=== PATIENT | female | born 1980 | race Caucasian/White ===

== ENCOUNTER → 2022-10-26 | Outpatient (REF) ==
[2022-10-26 14:10] LABS: RSV AMPLIFICATION NEGATIVE (NEGATIVE)
== END ==
LOC: M LABSMTC 10:51
PROVIDERS: ATTEND Family Medicine
DX: Z00.00 Encounter for general adult medical examination without abnormal findings (principal)

== ENCOUNTER → 2022-12-03 | Outpatient (CLI) | payer BC | LOC: M WUC 14:25 | PROVIDERS: ATTEND Physician Assistant | DX: S90.31XA Contusion of right foot, initial encounter (principal); W18.30XA Fall on same level, unspecified, initial encounter; Y92.009 Unspecified place in unspecified non-institutional (private) residence as the place of occurrence of the external cause ==

== ENCOUNTER → 2022-12-11 | Outpatient (CLI) | payer BC ==
[2022-12-11 09:10] LABS: APPEARANCE, URINE MANUAL CLEAR (CLEAR); COLOR, URINE MANUAL YELLOW (YELLOW)
[2022-12-11 09:11] LABS: PH,URINE MAN 7.5 UNITS (5.0 - 7.0)
[2022-12-11 09:12] LABS: BILIRUBIN, URINE MANUAL 3+ (NEGATIVE); BLOOD URINE MANUAL NEGATIVE (NEGATIVE); GLUCOSE, URINE (UA) MANUAL NEGATIVE (NEGATIVE); KETONE, URINE MANUAL NEGATIVE (NEGATIVE); LEUKOCYTE ESTERASE, URINE MAN NEGATIVE (NEGATIVE); NITRITE, URINE MANUAL NEGATIVE (NEGATIVE); PROTEIN, URINE MANUAL NEGATIVE (NEGATIVE); UROBILINOGEN, URINE MANUAL NORMAL (NORMAL)
[2022-12-11 09:18] LABS: BASO # 0.1 10^3/uL (0.0-0.2); BASO % 1.1 % (0.0-1.0); EOS # 0.1 10^3/uL (0.0-0.5); EOS % 1.1 % (0.0-3.0); HEMATOCRIT 42.6 % (36.0-47.0); HEMOGLOBIN 14.1 g/dl (12.0-15.5); LYMPH # 2.3 10^3/uL (1.5-5.0); LYMPH % 35.1 % (24.0-44.0); MEAN CORPUSCULAR HEMOGLOBIN 30.4 pg (27.0-33.0); MEAN CORPUSCULAR HGB CONC 33.1 g/dl (32.0-36.5); MEAN CORPUSCULAR VOLUME 91.8 fl (80.0-96.0); MONO # 0.6 10^3/uL (0.0-0.8); MONO % 8.4 % (2.0-8.0); NEUTROPHILS # 3.6 10^3/uL (1.5-8.5); PLATELET COUNT, AUTOMATED 254 10^3/uL (150-450); RED BLOOD COUNT 4.64 10^6/uL (4.00-5.40); WHITE BLOOD COUNT 6.6 10^3/uL (4.0-10.0)
[2022-12-11 09:31] LABS: ERYTHROCYTE SEDIMENTATION RATE 6 mm/hr (0-20)
[2022-12-11 09:47] LABS: URIC ACID 4.2 MG/DL (3.1-7.8)
[2022-12-11 09:48] LABS: C REACTIVE PROTEIN QUANTITATIV < 0.40 MG/DL (<1.0)
[2022-12-11 09:50] LABS: ALBUMIN 4.1 G/DL (3.2-5.2); ALKALINE PHOSPHATASE 80 U/L (46-116); ALT/SGPT 15 U/L (7.0-40); AST/SGOT 15 U/L (<34); BILIRUBIN,TOTAL 0.5 MG/DL (0.3-1.2); BLOOD UREA NITROGEN 14 MG/DL (9-23); CALCIUM LEVEL 8.6 MG/DL (8.5-10.1); CARBON DIOXIDE LEVEL 24 MMOL/L (20-31); CHLORIDE LEVEL 109 MMOL/L (98-107); CHOLESTEROL LEVEL 189 MG/DL (<200); CHOLESTEROL RISK RATIO 4.16 (<5); CREATININE FOR GFR 0.87 MG/DL (0.55-1.30); GLOMERULAR FILTRATION RATE > 60.0 (>58); GLUCOSE, FASTING 92 MG/DL (60-100); HDL CHOLESTEROL 45.4 MG/DL (>40); IRON (FE) 66 UG/DL (50-170); LDL CHOLESTEROL 114.4 MG/DL (<100); NON-HDL-C 144 MG/DL; POTASSIUM SERUM 3.9 MMOL/L (3.5-5.1); RHEUMATOID FACTOR QUANT < 3.5 IU/ML (<14); SODIUM LEVEL 140 MMOL/L (136-145); TOTAL IRON BINDING CAPACITY 348 UG/DL (250-425); TOTAL PROTEIN 7.2 G/DL (5.7-8.2); TRIGLYCERIDES LEVEL 146 MG/DL (<150)
[2022-12-11 09:51] LABS: FOLATE 11.5 NG/ML (>5.4); TOTAL 25(OH) VITAMIN D 13.1 NG/ML (20.0-100.0); VITAMIN B12 LEVEL 329 PG/ML (211-911)
[2022-12-11 09:52] LABS: FERRITIN 37.2 NG/ML (7.3-270.7); FREE T4 1.02 NG/DL (0.89-1.76); THYROID STIMULATING HORMONE 0.645 uIU/ML (0.55-4.78)
== END ==
LOC: M LAB 08:27
PROVIDERS: ATTEND Physician Assistant
DX: M25.50 Pain in unspecified joint (principal)

== ENCOUNTER → 2023-01-18 | Outpatient (CLI) | payer BC | LOC: M WHC 08:31 | PROVIDERS: ATTEND Physician Assistant | DX: Z12.31 Encounter for screening mammogram for malignant neoplasm of breast (principal); N64.52 Nipple discharge ==

== ENCOUNTER → 2023-03-23 | Outpatient (CLI) | payer BC ==
[~2023-03-23] MED LIST: BUSP7.5T7 PO; DULO1CAP6 PO; ERGO500029 PO; MONT10TA97 PO; QVAR80AE8 INH; TOPI100T9 PO; VENTAER
[2023-03-23 08:04] LABS: BASO # 0.1 10^3/uL (0.0-0.2); EOS # 0.1 10^3/uL (0.0-0.5); EOS % 1.1 % (0.0-3.0); HEMATOCRIT 41.7 % (36.0-47.0); HEMOGLOBIN 13.7 g/dl (12.0-15.5); LYMPH % 27.3 % (24.0-44.0); MEAN CORPUSCULAR HEMOGLOBIN 30.5 pg (27.0-33.0); MEAN CORPUSCULAR HGB CONC 32.9 g/dl (32.0-36.5); MEAN CORPUSCULAR VOLUME 92.9 fl (80.0-96.0); MONO # 0.5 10^3/uL (0.0-0.8); MONO % 7.1 % (2.0-8.0); NEUTROPHILS # 4.7 10^3/uL (1.5-8.5); NEUTROPHILS % 63.1 % (36.0-66.0); PLATELET COUNT, AUTOMATED 231 10^3/uL (150-450); RED BLOOD COUNT 4.49 10^6/uL (4.00-5.40); WHITE BLOOD COUNT 7.4 10^3/uL (4.0-10.0)
[2023-03-23 08:20] LABS: BLOOD UREA NITROGEN 12 MG/DL (9-23); CALCIUM LEVEL 8.3 MG/DL (8.5-10.1); CARBON DIOXIDE LEVEL 24 MMOL/L (20-31); CHLORIDE LEVEL 110 MMOL/L (98-107); CREATININE FOR GFR 0.79 MG/DL (0.55-1.30); GLOMERULAR FILTRATION RATE > 60.0 (>58); GLUCOSE, FASTING 86 MG/DL (60-100); POTASSIUM SERUM 3.9 MMOL/L (3.5-5.1); SODIUM LEVEL 143 MMOL/L (136-145)
== END ==
LOC: M LAB 07:28
PROVIDERS: ATTEND Student in an Organized Health Care Education/Training Program
DX: Z01.818 Encounter for other preprocedural examination (principal)

== ENCOUNTER 2023-03-29 06:13 | Day surgery (SDC) | payer BC ==
[~2023-03-29] VITALS: Ht 175.3 cm; Wt 109.6 kg
[2023-03-29] MEDS ORDERED: ceFAZolin SOD 2 GM in IV 1 EA IV ONE (07:05)
[2023-03-29] MEDS ORDERED: LIDOCAINE 1% SDV 30ML VIAL As Ordered ONE (07:07)
[2023-03-29] MEDS ORDERED: BUPIVACAINE HCL 0.25% 30ML VIAL As Ordered ONE (07:07)
[2023-03-29] MEDS ORDERED: LR 1,000 ML IV SCH (07:25)
[2023-03-29] MEDS ORDERED: HEPARIN SOD (PORCINE) 5000UNITS/ML 1ML VIAL/SYRINGE SQ ONE (07:25)
[2023-03-29] MEDS ORDERED: ONDANSETRON 4MG 2ML VIAL As Ordered ONE (07:56)
[2023-03-29] MEDS ORDERED: fentaNYL 250 MCG/5 ML INJECTION As Ordered ONE (07:56)
[2023-03-29] MEDS ORDERED: propofoL 200 MG/20 ML VIAL As Ordered ONE (07:56)
[2023-03-29] MEDS ORDERED: MIDAZOLAM INJ 2MG/2ML VIAL As Ordered ONE (07:56)
[2023-03-29] MEDS ORDERED: LIDOCAINE 2% 100MG/5ML SDV (FOR ANES.) As Ordered ONE (07:56)
[2023-03-29] MEDS ORDERED: ACETAMINOPHEN 1000MG 100ML IV BAG As Ordered ONE (08:04)
[2023-03-29] MEDS ORDERED: diphenhydrAMINE 50MG/ML VIAL As Ordered ONE (08:52)
[2023-03-29] MEDS ORDERED: SCOPOLAMINE 1MG TRANSDERMAL PATCH TOP ONE (09:00)
[2023-03-29] MEDS ORDERED: oxyCODONE 5MG TAB PO PRN (09:05)
[2023-03-29] MEDS ORDERED: MORPHINE 2 MG/ML 1ML VIAL IV PRN (09:05)
[2023-03-29] MEDS ORDERED: ONDANSETRON 4MG 2ML VIAL IV PRN (09:05)
[2023-03-29] MEDS ORDERED: fentaNYL 100 MCG/2 ML INJECTION IV PRN (09:05)
[2023-03-29] MEDS ORDERED: OXYC5CAP56 PO (09:19)
[2023-03-29 11:15] VITALS: BP 140/91
[2023-03-29] MEDS ORDERED: OXYC-517 PO (11:41)
== END 2023-03-29 11:15 | disposition home or self-care (01) ==
LOC: M SDC 06:13
PROVIDERS: ATTEND Surgery
DX: D24.1 Benign neoplasm of right breast (principal); N64.52 Nipple discharge; M19.90 Unspecified osteoarthritis, unspecified site; K21.9 Gastro-esophageal reflux disease without esophagitis; K59.00 Constipation, unspecified; M79.7 Fibromyalgia; G43.909 Migraine, unspecified, not intractable, without status migrainosus; Z88.8 Allergy status to other drugs, medicaments and biological substances; Z79.899 Other long term (current) drug therapy; Z79.51 Long term (current) use of inhaled steroids
CPT/HCPCS: 19120; 36415; 81025; 86850; 86900; 86901; 88305; J0131; J0690; J1100; J1200; J2250; J2405; J3010; S0020

== ENCOUNTER → 2023-07-19 | Outpatient (CLI) | payer BC ==
[~2023-07-19] MED LIST changes: +OXYC-517 PO; +OXYC5CAP56 PO
== END ==
LOC: M PLAIMG 13:34
PROVIDERS: ATTEND Physician Assistant
DX: G43.119 Migraine with aura, intractable, without status migrainosus (principal); R20.2 Paresthesia of skin

== ENCOUNTER → 2023-09-22 | Outpatient (REF) | LOC: M EMP 15:51 | PROVIDERS: ATTEND Family Medicine | DX: Z11.52 Encounter for screening for COVID-19 (principal) ==

== ENCOUNTER → 2023-10-11 | Outpatient (CLI) | payer BC ==
[2023-10-11 14:11] LABS: BASO # 0.1 10^3/uL (0.0-0.2); BASO % 0.6 % (0.0-1.0); EOS # 0.1 10^3/uL (0.0-0.5); EOS % 0.7 % (0.0-3.0); HEMATOCRIT 39.5 % (36.0-47.0); HEMOGLOBIN 13.3 g/dl (12.0-15.5); LYMPH # 2.2 10^3/uL (1.5-5.0); LYMPH % 26.2 % (24.0-44.0); MEAN CORPUSCULAR HEMOGLOBIN 30.6 pg (27.0-33.0); MEAN CORPUSCULAR HGB CONC 33.7 g/dl (32.0-36.5); MEAN CORPUSCULAR VOLUME 90.8 fl (80.0-96.0); MONO # 0.5 10^3/uL (0.0-0.8); MONO % 6.4 % (2.0-8.0); NEUTROPHILS # 5.5 10^3/uL (1.5-8.5); PLATELET COUNT, AUTOMATED 219 10^3/uL (150-450); RED BLOOD COUNT 4.35 10^6/uL (4.00-5.40); WHITE BLOOD COUNT 8.3 10^3/uL (4.0-10.0)
[2023-10-11 14:39] LABS: ALBUMIN 3.7 G/DL (3.2-5.2); ALKALINE PHOSPHATASE 81 U/L (46-116); ALT/SGPT 19 U/L (7.0-40); AST/SGOT 14 U/L (<34); BILIRUBIN,TOTAL 0.5 MG/DL (0.3-1.2); BLOOD UREA NITROGEN 14 MG/DL (9-23); CALCIUM LEVEL 8.6 MG/DL (8.5-10.1); CARBON DIOXIDE LEVEL 24 MMOL/L (20-31); CHLORIDE LEVEL 106 MMOL/L (98-107); CREATININE FOR GFR 0.77 MG/DL (0.55-1.30); GLOMERULAR FILTRATION RATE > 60.0 (>58); GLUCOSE, FASTING 108 MG/DL (60-100); SODIUM LEVEL 141 MMOL/L (136-145); TOTAL PROTEIN 6.7 G/DL (5.7-8.2)
[2023-10-11 14:40] LABS: RHEUMATOID FACTOR QUANT < 3.5 IU/ML (<14)
[2023-10-11 14:41] LABS: ERYTHROCYTE SEDIMENTATION RATE 10 mm/hr (0-20)
[2023-10-11 14:42] LABS: THYROID STIMULATING HORMONE 0.682 uIU/ML (0.55-4.78)
[2023-10-12 18:07] LABS: ANTINUCLEAR ANTIBODIES DIRECT Negative (Negative)
== END ==
LOC: M LAB 13:37
PROVIDERS: ATTEND Psychiatry & Neurology Neurology
DX: R50.9 Fever, unspecified (principal)

== ENCOUNTER → 2023-12-30 | Outpatient (REF) | LOC: M EMP 11:12 | PROVIDERS: ATTEND Family Medicine | DX: Z11.52 Encounter for screening for COVID-19 (principal) ==

== ENCOUNTER → 2024-09-14 | Outpatient (CLI) | payer BC ==
[2024-09-14 08:37] LABS: HEMATOCRIT 40.4 % (36.0-47.0); HEMOGLOBIN 13.3 g/dl (12.0-15.5); MEAN CORPUSCULAR HEMOGLOBIN 29.1 pg (27.0-33.0); MEAN CORPUSCULAR HGB CONC 32.9 g/dl (32.0-36.5); MEAN CORPUSCULAR VOLUME 88.4 fl (80.0-96.0); PLATELET COUNT, AUTOMATED 254 10^3/uL (150-450); RED BLOOD COUNT 4.57 10^6/uL (4.00-5.40); WHITE BLOOD COUNT 8.1 10^3/uL (4.0-10.0)
[2024-09-14 08:50] LABS: CPK CREATINE PHOSPHOKINASE 233 U/L (34-145)
[2024-09-14 08:51] LABS: ALBUMIN 3.8 G/DL (3.2-5.2); ALKALINE PHOSPHATASE 80 U/L (35-104); ALT/SGPT 28 U/L (7.0-40); AST/SGOT 16 U/L (<34); BILIRUBIN,TOTAL 0.5 MG/DL (0.3-1.2); BLOOD UREA NITROGEN 14 MG/DL (9-23); CALCIUM LEVEL 9.6 MG/DL (8.5-10.1); CARBON DIOXIDE LEVEL 27 MMOL/L (20-31); CHLORIDE LEVEL 107 MMOL/L (98-107); CHOLESTEROL LEVEL 200 MG/DL (<200); CHOLESTEROL RISK RATIO 3.85 (<5); CREATININE FOR GFR 0.81 MG/DL (0.55-1.30); GLOMERULAR FILTRATION RATE > 60.0 (>58); GLUCOSE, FASTING 117 MG/DL (60-100); HDL CHOLESTEROL 51.9 MG/DL (>40); LDL CHOLESTEROL 120.1 MG/DL (<100); NON-HDL-C 148.1 MG/DL; POTASSIUM SERUM 4.1 MMOL/L (3.5-5.1); SODIUM LEVEL 139 MMOL/L (136-145); TOTAL PROTEIN 7.1 G/DL (5.7-8.2); TRIGLYCERIDES LEVEL 140 MG/DL (<150)
[2024-09-14 08:55] LABS: THYROID STIMULATING HORMONE 0.992 uIU/ML (0.55-4.78); THYROXINE (T4) 8.4 UG/DL (4.5-10.9)
== END ==
LOC: M LAB 07:42
PROVIDERS: ATTEND Physician Assistant
DX: Z13.220 Encounter for screening for lipoid disorders (principal)

== ENCOUNTER → 2024-10-03 | Outpatient (CLI) | payer BC ==
[2024-10-03 19:06] LABS: RHEUMATOID FACTOR QUANT < 3.5 IU/ML (<14); TOTAL 25(OH) VITAMIN D 38.1 NG/ML (20.0-100.0)
[2024-10-03 19:33] LABS: HEMOGLOBIN A1c 6.4 % (4.0-6.0)
== END ==
LOC: M LAB 17:26
DX: F41.8 Other specified anxiety disorders (principal); Z76.89 Persons encountering health services in other specified circumstances; E66.813 Obesity, class 3

== ENCOUNTER → 2024-10-16 | Outpatient (REF) | LOC: M EMP 09:28 | PROVIDERS: ATTEND Family Medicine | DX: Z11.52 Encounter for screening for COVID-19 (principal) ==

== ENCOUNTER → 2024-10-24 | Outpatient (CLI) | payer BC | LOC: M WHC 06:39 | DX: Z12.31 Encounter for screening mammogram for malignant neoplasm of breast (principal) ==

== ENCOUNTER → 2024-11-29 | Outpatient (CLI) | payer BC | LOC: M WHC 09:01 | DX: Z12.31 Encounter for screening mammogram for malignant neoplasm of breast (principal) ==

== ENCOUNTER → 2024-12-05 | Outpatient (CLI) | payer BC | LOC: M SLEEP HO 11:41 | PROVIDERS: ATTEND Physician Assistant | DX: R40.0 Somnolence (principal); R06.83 Snoring ==

== ENCOUNTER → 2024-12-29 | Outpatient (CLI) | payer BC ==
[2024-12-29 11:05] LABS: BLOOD UREA NITROGEN 14 MG/DL (9-23); CREATININE FOR GFR 0.77 MG/DL (0.55-1.30); GLOMERULAR FILTRATION RATE > 60.0 (>58)
== END ==
LOC: M LAB 10:11
PROVIDERS: ATTEND Psychiatry & Neurology Neurology
DX: I10 Essential (primary) hypertension (principal)

== ENCOUNTER → 2025-01-07 | Outpatient (CLI) | payer BC ==
[2025-01-07 09:48] LABS: HEMOGLOBIN A1c 6.2 % (4.0-6.0)
[2025-01-07 10:29] LABS: HIV 1&2 SCREEN NEGATIVE (NEGATIVE)
[2025-01-07 11:29] LABS: Trichomonas vaginalis (AMP) NOT DETECTED (NEGATIVE)
[2025-01-07 11:53] LABS: GC DNA AMPLIFICATION NEGATIVE (NEGATIVE)
== END ==
LOC: M LAB 08:38
DX: Z20.2 Contact with and (suspected) exposure to infections with a predominantly sexual mode of transmission (principal)

== ENCOUNTER → 2025-01-07 | Outpatient (CLI) | payer BC ==
[2025-01-07 09:34] LABS: HEMATOCRIT 42.6 % (36.0-47.0); HEMOGLOBIN 14.3 g/dl (12.0-15.5); MEAN CORPUSCULAR HEMOGLOBIN 29.7 pg (27.0-33.0); MEAN CORPUSCULAR HGB CONC 33.6 g/dl (32.0-36.5); MEAN CORPUSCULAR VOLUME 88.6 fl (80.0-96.0); PLATELET COUNT, AUTOMATED 241 10^3/uL (150-450); RED BLOOD COUNT 4.81 10^6/uL (4.00-5.40); WHITE BLOOD COUNT 8.9 10^3/uL (4.0-10.0)
[2025-01-07 09:57] LABS: ALT/SGPT 35 U/L (7.0-40); AST/SGOT 30 U/L (<34); BLOOD UREA NITROGEN 17 MG/DL (9-23); CARBON DIOXIDE LEVEL 22 MMOL/L (20-31); CHLORIDE LEVEL 106 MMOL/L (98-107); CHOLESTEROL LEVEL 209 MG/DL (<200); CHOLESTEROL RISK RATIO 3.78 (<5); CREATININE FOR GFR 0.81 MG/DL (0.55-1.30); GLOMERULAR FILTRATION RATE > 60.0 (>58); GLUCOSE, FASTING 113 MG/DL (60-100); HDL CHOLESTEROL 55.2 MG/DL (>40); LDL CHOLESTEROL 110.4 MG/DL (<100); MAGNESIUM LEVEL 2.1 MG/DL (1.8-2.4); NON-HDL-C 153.8 MG/DL; SODIUM LEVEL 141 MMOL/L (136-145); TRIGLYCERIDES LEVEL 217 MG/DL (<150)
[2025-01-07 10:01] LABS: CPK CREATINE PHOSPHOKINASE 101 U/L (34-145)
== END ==
LOC: M LAB 08:40
PROVIDERS: ATTEND Physician Assistant
DX: Z13.220 Encounter for screening for lipoid disorders (principal)

== ENCOUNTER 2025-01-11 08:46 | Emergency (ER) | payer BC ==
[~2025-01-11] VITALS: Ht 175.3 cm; Wt 131.0 kg
[2025-01-11] MEDS ORDERED: AMOX875T2 PO (11:33)
[2025-01-11 12:07] VITALS: BP 128/78; TEMP 98.5; O2SAT 99
== END 2025-01-11 12:09 | disposition home or self-care (01) ==
LOC: M ED 08:46
DX: T78.40XA Allergy, unspecified, initial encounter (principal); K04.7 Periapical abscess without sinus; I10 Essential (primary) hypertension; Z91.011 Allergy to milk products; Z91.018 Allergy to other foods; Z88.8 Allergy status to other drugs, medicaments and biological substances; Z79.2 Long term (current) use of antibiotics; Z79.51 Long term (current) use of inhaled steroids; Z79.899 Other long term (current) drug therapy

== ENCOUNTER 2025-03-14 10:55 | Emergency (ER) | payer BC ==
[~2025-03-14] VITALS: Ht 175.3 cm; Wt 132.6 kg
[~2025-03-14 10:55] MED LIST changes: +AMOX875T2 PO; +TOPI-257 PO; -TOPI100T9 PO
[2025-03-14] MEDS: ACETAMINOPHEN 500 MG TAB PO ONE (12:46)
[2025-03-14] MEDS: NS (Normal Saline) 0.9% 1,000 ML IV ONE (12:46)
[2025-03-14] MEDS: diphenhydrAMINE 50MG/ML VIAL IV ONE (12:47)
[2025-03-14 12:49] LABS: BLOOD UREA NITROGEN 14 MG/DL (9-23); CALCIUM LEVEL 9.5 MG/DL (8.5-10.1); CARBON DIOXIDE LEVEL 26 MMOL/L (20-31); CHLORIDE LEVEL 104 MMOL/L (98-107); CK-MB VALUE MASS < 1.0 NG/ML (<3.6); CREATININE FOR GFR 0.85 MG/DL (0.55-1.30); GLOMERULAR FILTRATION RATE 86.6 (>58); GLUCOSE, FASTING 103 MG/DL (60-100); POTASSIUM SERUM 3.7 MMOL/L (3.5-5.1); SODIUM LEVEL 138 MMOL/L (136-145)
[2025-03-14 12:50] LABS: BASO # 0.1 10^3/uL (0.0-0.2); BASO % 0.8 % (0.0-1.0); CPK CREATINE PHOSPHOKINASE 134 U/L (34-145); EOS # 0.1 10^3/uL (0.0-0.5); EOS % 1.2 % (0.0-3.0); HEMOGLOBIN 14.2 g/dl (12.0-15.5); LYMPH # 3.4 10^3/uL (1.5-5.0); LYMPH % 33.3 % (24.0-44.0); MB/CK RELATIVE INDEX 0.74 (< OR =4); MEAN CORPUSCULAR HEMOGLOBIN 29.6 pg (27.0-33.0); MEAN CORPUSCULAR VOLUME 89.6 fl (80.0-96.0); MONO # 0.7 10^3/uL (0.0-0.8); MONO % 6.5 % (2.0-8.0); NEUTROPHILS # 5.8 10^3/uL (1.5-8.5); NEUTROPHILS % 57.8 % (36.0-66.0); PLATELET COUNT, AUTOMATED 252 10^3/uL (150-450); WHITE BLOOD COUNT 10.1 10^3/uL (4.0-10.0)
[2025-03-14] MEDS: KETOROLAC 30 MG/ML 1ML VIAL IV ONE (14:09)
[2025-03-14 14:30] VITALS: BP 136/78; O2SAT 95
[2025-03-14 15:16] VITALS: TEMP 97.4
== END 2025-03-14 15:26 | disposition home or self-care (01) ==
LOC: M ED 10:55
DX: G43.909 Migraine, unspecified, not intractable, without status migrainosus (principal); I10 Essential (primary) hypertension; J45.909 Unspecified asthma, uncomplicated; M79.7 Fibromyalgia; Z88.8 Allergy status to other drugs, medicaments and biological substances; Z91.018 Allergy to other foods; Z91.011 Allergy to milk products; Z79.2 Long term (current) use of antibiotics; Z79.51 Long term (current) use of inhaled steroids; Z79.899 Other long term (current) drug therapy
CPT/HCPCS: 70450; 80047; 80048; 82550; 82553; 84484; 84702; 85025; 93005; 96361; 96374; 96375; 99284; J1200; J1885

== ENCOUNTER → 2025-05-21 | Outpatient (CLI) | payer BC ==
[2025-05-27 19:09] LABS: CLASS DESCRIPTION 1 (.); F218-IGE PAPRIKA/RED PEPPER <0.10 kU/L (Class 0); F280-IGE BLACK PEPPER <0.10 kU/L (Class 0); F332-IgE MINT <0.10 kU/L (Class 0); IGE JALAPENO PEPPER 0.62 kU/L (<0.35)
== END ==
LOC: M LAB 16:45
PROVIDERS: ATTEND Allergy & Immunology Allergy
DX: T78.1XXA Other adverse food reactions, not elsewhere classified, initial encounter (principal)

== ENCOUNTER → 2025-06-19 | Outpatient (CLI) | payer BC | LOC: M SLEEP 20:00 | PROVIDERS: ATTEND Physician Assistant | DX: G47.33 Obstructive sleep apnea (adult) (pediatric) (principal) ==

== ENCOUNTER → 2025-07-01 | Outpatient (CLI) | payer BC | LOC: M WHC 14:25 | DX: R92.8 Other abnormal and inconclusive findings on diagnostic imaging of breast (principal); R92.321 Mammographic fibroglandular density, right breast | CPT/HCPCS: 77065; G0279 ==

== ENCOUNTER 2025-07-10 16:08 | Emergency (ER) | payer BC ==
[~2025-07-10] VITALS: Ht 175.3 cm; Wt 128.2 kg
[2025-07-10 16:22] VITALS: TEMP 98.3
[2025-07-10 17:05] LABS: BASO # 0.1 10^3/uL (0.0-0.2); BASO % 0.7 % (0.0-1.0); EOS # 0.2 10^3/uL (0.0-0.5); EOS % 1.4 % (0.0-3.0); LYMPH # 4.8 10^3/uL (1.5-5.0); LYMPH % 41.7 % (24.0-44.0); MONO # 0.6 10^3/uL (0.0-0.8); MONO % 5.6 % (2.0-8.0); NEUTROPHILS # 5.7 10^3/uL (1.5-8.5); NEUTROPHILS % 50.3 % (36.0-66.0); PLATELET COUNT, AUTOMATED 262 10^3/uL (150-450)
[2025-07-10] MEDS: FAMOTIDINE 20 MG/2 ML VIAL IVP ONE (17:07)
[2025-07-10 17:37] LABS: CALCIUM LEVEL 9.9 MG/DL (8.5-10.1); CARBON DIOXIDE LEVEL 23 MMOL/L (20-31); CHLORIDE LEVEL 106 MMOL/L (98-107); CREATININE FOR GFR 0.78 MG/DL (0.55-1.30); GLOMERULAR FILTRATION RATE > 90.0 (>58); POTASSIUM SERUM 3.3 MMOL/L (3.5-5.1); SODIUM LEVEL 143 MMOL/L (136-145)
[2025-07-10] MEDS: POTASSIUM CHLORIDE 10MEQ SR TABLET PO ONE (17:47)
[2025-07-10 22:30] VITALS: BP 137/91
[2025-07-10 23:00] VITALS: O2SAT 96
== END 2025-07-10 23:24 | disposition home or self-care (01) ==
LOC: M ED 16:08 → EDBD 16:08 → M ED 23:24
DX: T78.1XXA Other adverse food reactions, not elsewhere classified, initial encounter (principal); I10 Essential (primary) hypertension; J45.909 Unspecified asthma, uncomplicated; G43.909 Migraine, unspecified, not intractable, without status migrainosus; F41.9 Anxiety disorder, unspecified; F32.A Depression, unspecified; M79.7 Fibromyalgia; Z91.011 Allergy to milk products; Z88.8 Allergy status to other drugs, medicaments and biological substances; Z91.02 Food additives allergy status; Z91.018 Allergy to other foods; Z79.52 Long term (current) use of systemic steroids; Z79.899 Other long term (current) drug therapy
CPT/HCPCS: 80048; 85025; 93005; 93041; 94760; 96374; 96375; 99285; J1308; J2919

== ENCOUNTER → 2025-07-19 | Outpatient (REF) | payer BC ==
[2025-07-19 11:41] LABS: C REACTIVE PROTEIN QUANTITATIV 1.18 MG/DL (<1.0)
== END ==
LOC: M LAB REF 10:18
PROVIDERS: ATTEND Nurse Practitioner Family
DX: R21 Rash and other nonspecific skin eruption (principal)

== ENCOUNTER → 2025-07-19 | Outpatient (REF) | payer BC ==
[2025-07-19 11:19] LABS: ESTIMATED AVERAGE GLUCOSE 137.0 MG/DL (60-110)
[2025-07-19 11:45] LABS: ALT/SGPT 30 U/L (7.0-40); AST/SGOT 21 U/L (<34); C REACTIVE PROTEIN QUANTITATIV 1.14 MG/DL (<1.0); CALCIUM LEVEL 9.3 MG/DL (8.5-10.1); CARBON DIOXIDE LEVEL 27 MMOL/L (20-31); CHLORIDE LEVEL 105 MMOL/L (98-107); CREATININE FOR GFR 0.90 MG/DL (0.55-1.30); GLOMERULAR FILTRATION RATE 80.8 (>58); POTASSIUM SERUM 4.1 MMOL/L (3.5-5.1); SODIUM LEVEL 143 MMOL/L (136-145)
[2025-07-19 11:47] LABS: RHEUMATOID FACTOR QUANT < 3.5 IU/ML (<14)
[2025-07-19 11:48] LABS: TOTAL 25(OH) VITAMIN D 49.6 NG/ML (20.0-100.0)
== END ==
LOC: M LAB REF 10:36
PROVIDERS: ATTEND Internal Medicine
DX: R73.01 Impaired fasting glucose (principal); E56.8 Deficiency of other vitamins; M13.0 Polyarthritis, unspecified; R21 Rash and other nonspecific skin eruption